=== PATIENT | female | born 1935 | race Caucasian/White ===

== ENCOUNTER 2018-04-25 13:49 | Inpatient (IN) | payer OTHER ==
[~2018-04-25] VITALS: Ht 152.4 cm; Wt 65.3 kg
[~2018-04-25 13:49] MED LIST: ALL DAY ALLERGY10 M3 PO; ARICEPT10 MG PO; DILTIAZEM HCL90 MG PO; DOXYCYCLINE 10100 MG PO; GLUCOSAMINE S1000 M2 PO; KEFLEX500 MG PO; LEVAQUIN 250 M250 MG PO; LIPITOR 20 MG T20 M1 PO; LISINOPRIL10 MG PO; LOPERAMIDE 2 MG2 M1 PO; MUCINEX600 MG PO; NAMENDA 10 MG T10 MG PO; NASONEX17 GM NS; NORVASC5 MG PO; OXYBUTYNIN 5 MG5 M1 GT; PLAVIX 75 MG TA75 M1 PO; PRILOSEC 20 MG20 MG PO; PROTONIX 20 MG20 M1 PO; SEROQUEL 25 MG25 M1 PO; TUMS PO; TYLENOL325 MG PO; XARELTO20 MG PO; ZOLOFT25 MG PO; ZYRTEC10 M2 PO
[2018-04-25 13:55] VITALS: BP 116/41
[2018-04-25 14:00] VITALS: BP 144/57
[2018-04-25] MEDS ORDERED: OCEAN104 ML NASAL (14:01)
[2018-04-25] MEDS ORDERED: ASPIR 8181 MG PO (14:02)
[2018-04-25] MEDS ORDERED: ATROVENT HFA14 GM INH (14:02)
[2018-04-25] MEDS ORDERED: PEPCID20 MG PO (14:03)
[2018-04-25 14:21] LABS: URINE BILIRUBIN NEGATIVE (Negative); URINE BLOOD 1+ (Negative); URINE CLARITY CLOUDY; URINE COLOR YELLOW; URINE GLUCOSE-RANDOM NEGATIVE (Negative); URINE KETONES NEGATIVE (Negative); URINE PROTEIN 1+ (Negative); URINE SPECIFIC GRAVITY >= 1.030 (1.005-1.030); URINE UROBILINOGEN 0.2 E.U./dl (0.2-1.0)
[2018-04-25 14:24] LABS: ABSOLUTE BASOPHILS 0.1 thou/uL (0.0-0.2); ABSOLUTE EOSINOPHILS 0.1 thou/uL (0.0-0.7); ABSOLUTE LYMPHOCYTES 1.7 thou/uL (0.8-5.3); ABSOLUTE MONOCYTES 0.9 thou/uL (0.0-1.2); ABSOLUTE NEUTROPHILS 8.5 thou/uL (1.6-8.1); BASOPHILS 0.6 %; EOSINOPHILS 0.7 %; HEMATOCRIT 33.9 % (37.0-47.0); HEMOGLOBIN 11.1 gm/dL (12.0-15.0); LYMPHOCYTES 15.2 %; MCH 27.1 pg (26.0-34.0); MCHC 32.6 g/dL (28.0-37.0); MCV 83.2 fL (80.0-100.0); MONOCYTES 7.8 %; MPV 8.3 fl. (7.2-11.1); NUCLEATED RBCS 0 /100WBC; PLATELET COUNT* 229 thou/uL (150-400); POLYS 75.7 %; RBC 4.07 mil/uL (4.20-5.00); RDW-CV 15.5 % (10.5-14.5); WBC 11.2 thou/uL (4.0-11.0)
[2018-04-25 14:24] LABS: URINE LEUKOCYTES-REFLEX 2+ (Negative); URINE NITRITE-REFLEX POSITIVE (Negative)
[2018-04-25 14:30] LABS: SQUAMOUS 4-10 Moderate /LPF (0-3); WBC CLUMPS Few (None Seen)
[2018-04-25 14:32] LABS: BACTERIA-REFLEX 1-9 Few /HPF (None Seen); HYALINE CASTS 0-3 Few /LPF (None Seen); MUCUS 0-3 Light strn/LPF (None Seen); URINE RBC 0-2 Rare /HPF (0-2)
[2018-04-25 14:33] LABS: CRYSTALS None Seen /LPF (None Seen)
[2018-04-25 14:36] LABS: APTT 30.3 Seconds (25.0-31.3); INR 1.1; PROTIME 10.8 Seconds (9.20-11.50)
[2018-04-25 14:37] LABS: ANION GAP 7 mmol/L (7-16); BUN 13 mg/dL (7-18); CALCIUM 9.3 mg/dL (8.5-10.1); CHLORIDE 99 mmol/L (98-107); CO2 27 mmol/L (21-32); CREATININE 1.2 mg/dL (0.6-1.3); GLUCOSE 200 mg/dL (70-99); POTASSIUM 4.1 mmol/L (3.5-5.1); SODIUM 133 mmol/L (136-145)
[2018-04-25 14:49] LABS: ALBUMIN 2.6 g/dL (3.4-5.0); ALKALINE PHOSPHATASE 73 U/L (46-116); NT-PRO BRAIN NAT PEPTIDE 345 pg/mL (<300); SGOT 20 U/L (15-37); SGPT 21 U/L (30-65); TOTAL BILIRUBIN 0.4 mg/dL (<0.1-1.0); TOTAL PROTEIN 7.4 g/dL (6.4-8.2); TROPONIN-I LEVEL <0.06 ng/mL (<0.06)
[2018-04-25 15:46] VITALS: BP 143/54
[2018-04-25 16:00] VITALS: BP 144/57
--- NOTE | 2018-04-25 17:06 | NUR ---
PATIENT ADMITTED TO THE UNIT AT 1600 FROM ER. PATIENT AWAKE UPON ARRIVING, BUT NON-VERBAL AND FELL ASLEEP QUICKLY AFTER ARRIVING. PATIENT AWAKE TO STIMULATION, BUT FALLS ASLEEP EASILY. VITALS WNL. DOES NOW HAVE LOW-GRADE FEVER. DTR STATED SHE HAD A HIGH FEVER OF 101.8 AT THE [facility] OVERNIGHT AND THAT'S WHAT PROMPTED HER TO BE BROUGHT HERE. DX WITH PNA AND UTI. DTR STATES PATIENT HAS A HX OF DEMENTIA BUT USUALLY IS ALERT AND DOES TRY TO SPEAK TO NURSING STAFF. HX OF STROKE WITH LEFT SIDED WEAKNESS. PATIENT NON-AMBULATORY, BUT DTR STATES SHE DOES TRANSFER TO A WHEELCHAIR BY PIVOT WITH MAX ASSIST. [facility] RES[facility]. HAS OUTSIDE OF HOSPITAL DNR IN CHART, BUT PATIENT'S DAUGHTER STATED SHE WOULD LIKE HER TO BE A FULL CODE AT THIS TIME. DR BERNSTEIN NOTIFIED WHO ORDERED FULL CODE STATUS. IV IN LAC INFUSING NS PER EMAR. VANC COMPLETED AFTER ARRIVAL TO UNIT, AWAASHLEY RODAS FROM PHARMACY TO INFUSE. PATIENT INCONTNENT BUT DRY UPON ARRIVAL. WILL CONTINUE WITH CURRENT PLAN OF CARE.
[2018-04-25 19:00] VITALS: BP 134/55
[2018-04-25 20:27] LABS: MAGNESIUM 1.8 mg/dL (1.8-2.4); PHOSPHORUS* 2.9 mg/dL (2.5-4.9)
--- NOTE | 2018-04-25 22:30 | NUR ---
ASSESSMENT COMPLETED AT START OF SHIFT. PT WILL ANSWER CLOSED ENDED QUESTIONS BY NODDING HER HEAD. DENIES PAIN. PT HAS HAD 1 LOOSE STOOL THUS FAR THIS EVENING. PT TRACING SR ON MONITOR. IVF AND IV ABT INFUSING ORDERED. VSS AT THIS TIME. BED ALARM ON, Q2 TURNS. CLWR
[2018-04-26 00:08] VITALS: BP 119/47
[2018-04-26 04:56] LABS: HEMOGLOBIN 9.5 gm/dL (12.0-15.0); MCH 27.7 pg (26.0-34.0); MCHC 32.9 g/dL (28.0-37.0); MCV 84.1 fL (80.0-100.0); MPV 8.5 fl. (7.2-11.1); RBC 3.45 mil/uL (4.20-5.00); RDW-CV 15.4 % (10.5-14.5)
[2018-04-26 05:10] LABS: ALBUMIN 2.2 g/dL (3.4-5.0); CALCIUM 8.6 mg/dL (8.5-10.1); CREATININE 0.9 mg/dL (0.6-1.3); MAGNESIUM 1.7 mg/dL (1.8-2.4); POTASSIUM 3.5 mmol/L (3.5-5.1); TOTAL BILIRUBIN 0.3 mg/dL (<0.1-1.0); TOTAL PROTEIN 6.6 g/dL (6.4-8.2)
[2018-04-26 05:22] VITALS: BP 132/53
--- NOTE | 2018-04-26 05:25 | NUR ---
PT HAS SLEPT WELL T/O THIS SHIFT. CONTINUES TRACING SR WITH 1ST DEGREE BLOCK ON MONITOR. NO NEW CONCERNS AT THIS TIME. CLWR.
--- NOTE | 2018-04-26 10:22 | EKG ---
[place] [address] ELECTROCARDIOGRAM REPORT Name: ROCAELARYDOMO Room: [address] ADM IN M.R.#: [id number] Admission: 04/25/18 Attend Phys: Eitan Dinh, Discharge: Date of : 37 Report #: [id number] THIS REPORT FOR: //name// [facility] ED Test Date: 2018-04-25 Test Time: 13:54:57 Pat Name: DOMO PIERCE Department: Room: [facility] Gender: F Floor Attendant: Kenzie LAKE : 1935 Requested By: Brown Weiss Order Number: [id number] MD: Bridger Sanchez Measurements Intervals [place] Rate: 64 P: 40 SC: 204 QRS: -42 QRSD: 95 T: 16 QT: 534 QTc: 551 Interpretive Statements Sinus rhythm Left anterior fascicular block Left ventricular hypertrophy Anterior Q waves, possibly due to LVH Diffuse ST elevation, consider early repolarization Prolonged QT interval Compared to ECG 04/17/2017 15:23:29 Q waves now present Myocardial infarct finding now present Prolonged QT interval now present Atrial fibrillation no longer present Early repolarization no longer present ST (T wave) deviation still present Electronically Signed On 04-26-2018 10:22:35 SLAB POLISHER by Bridger Sanchez [email or web address] <ELECTRONICALLY SIGNED> By: Bridger Sanchez MD, FACC 04/26/18 1022 1354 [id number] Bridger Sanchez MD, FAC /EPI
[2018-04-26 10:30] VITALS: BP 143/59
--- NOTE | 2018-04-26 11:00 | NUR ---
REC'D REPORT FROM NOC RN, ASSUMED PT CARE 0730. ORIENTED TO PERSON, SITUATION. PT SLOW TO RESPOND, DIFFICULT TO UNDERSTAND DURING INTITIATION OF SPEECH. PLEASANT, APPROPRIATE COMMUNICATION STYLE AFTER INITIAL HESITATION. HEAD BANQUET WAITRESS IN PLACE, SR BBB. O2 SATS >92% ON RA. ASSESSMENT COMPLETE, DOCUMENTED. MEDS PER AUG. PT TOLERATES CRUSHED MED IN PUDDING. DAUGHTER VISITING IN ROOM. EDUCATION PROVIDED R/T CAREGIVER STRESS. DTR EXPRESSED RELIEF WITH THERAPEUTIC COMMUNICATION.
[2018-04-26 16:14] VITALS: BP 141/50
[2018-04-26 19:15] VITALS: BP 127/47
--- NOTE | 2018-04-26 22:40 | NUR ---
INITIAL ASSESSMENT COMPLETED AT START OF SHIFT. PT HAS A CONGESTED COUGH AND APPEARS TO BE SWALLOWING PHLEGM. O2 SATS ADEQUATE ON ROOM AIR. PT FEBRILE AT 100.2 AT TIME OF ASSESSMENT, PRN TYLENOL GIVEN WITH GOOD RESULTS. TEMPERATURE RETURNED TO NORMAL. IVF/IV ABT INFUSING ORDERED. PT INCONTINENT OF BLADDER AT THAT TIME. CLWR.
[2018-04-27] VITALS (7 sets, daily range): BP systolic 103–154; BP diastolic 50–81
--- NOTE | 2018-04-27 05:49 | NUR ---
PT HAS SLEPT T/O THE NIGHT. Q2 TURNS. 3 LOOSE STOOLS NOTED. RT PLACED PT ON 2L O2 VIA NC O2 SAT DROPPED TO 84% ON ROOM AIR, O2 SAT 94% ON 2LPM. PT DOES NOT APPEAR TO BE SOA OR IN ANY DISTRESS AT THIS TIME. CLWR.
[2018-04-27 05:50] LABS: HEMATOCRIT 28.6 % (37.0-47.0); HEMOGLOBIN 9.6 gm/dL (12.0-15.0); MCH 27.7 pg (26.0-34.0); MCHC 33.5 g/dL (28.0-37.0); MCV 82.7 fL (80.0-100.0); MPV 8.4 fl. (7.2-11.1); RBC 3.45 mil/uL (4.20-5.00); WBC 6.8 thou/uL (4.0-11.0)
[2018-04-27 05:58] LABS: CALCIUM 8.7 mg/dL (8.5-10.1); CREATININE 0.8 mg/dL (0.6-1.3); MAGNESIUM 1.6 mg/dL (1.8-2.4); POTASSIUM 3.4 mmol/L (3.5-5.1)
--- NOTE | 2018-04-27 15:48 | NUR ---
MET WITH PT/DTR TO DISCUSS HOME SITUATION/DC PLANNING. PT LIVES IN THE MEMORY CARE UNIT AT [facility]. IS W/C BOUND. DTR/ED STATES PLAN IS FOR HER TO RETURN THERE AT DC. ED IS DPOA. CALLED AND FAXED CLINICAL UPDATE TO CALLIE/CHANEL, THEY WILL ACCEPT BACK AT DC
--- NOTE | 2018-04-27 18:19 | NUR ---
PT WITHOUT C/O TODAY. FAMILY AT BEDSIDE. PT ANSWERS QUESTIONS WITH SIMPLE YES OR NO ANSWERS. PT NEEDS TIME TO PROCESS QUESTION BEFORE ANSWERING. PT ASSISTED WITH MEALS, HAS A SMALL APPETITE. RESPIRATIONS EVEN AND UNLABORED AT REST, CONGESTED COUGH, NO SPUTUM SEEN.
[2018-04-28] VITALS: BP 155/56
--- NOTE | 2018-04-28 02:30 | NUR ---
PT ALERT THIS SHIFT, ABLE TO ANSWER CLOSED ENDED QUESTIONS APPROPRIATELY. PT INCONTINENT OF BOWEL AND BLADDER. TRACING SR WITH 1ST DEGREE BLOCK ON THE MONITOR. PT DOES NOT APPEAR TO BE IN ANY DISTRESS. PT HAS BEEN REMOVING NC FREQUENTLY, O2 SATS AT 91% ON ROOM AIR. CONGESTED COUGH NOTED. IVF/IV ABT INFUSING ORDERED. CLWR, PT TURNED Q2 HRS FOR SKIN BREAKDOWN PREVENTION.
[2018-04-28 04:30] VITALS: BP 146/54
--- NOTE | 2018-04-28 06:07 | NUR ---
PT HAS SLEPT WELL T/O THIS SHIFT. HAD LOW GRADE FEVER AT START OF SHIFT, TYLENOL GIVEN, TEMP RETURNED TO NORMAL. PT HAS BEEN ON ROOM AIR T/O THIS SHIFT. CURRENTLY ON 2LPM WHILE SLEEPING
[2018-04-28 08:32] VITALS: BP 159/51
[2018-04-28 10:44] LABS: HEMATOCRIT 27.7 % (37.0-47.0); HEMOGLOBIN 9.3 gm/dL (12.0-15.0); MCH 27.7 pg (26.0-34.0); MCHC 33.5 g/dL (28.0-37.0); MCV 82.7 fL (80.0-100.0); MPV 8.5 fl. (7.2-11.1); RBC 3.35 mil/uL (4.20-5.00); RDW-CV 14.9 % (10.5-14.5); WBC 6.9 thou/uL (4.0-11.0)
[2018-04-28 12:00] VITALS: BP 142/79
[2018-04-28 15:48] VITALS: BP 115/62
--- NOTE | 2018-04-28 16:31 | EKG ---
[place] [address] ELECTROCARDIOGRAM REPORT Name: ROCAELARYDOMO Room: [address] ADM IN M.R.#: [id number] Admission: 04/25/18 Attend Phys: Eitan Dinh, Discharge: Date of : 37 Report #: [id number] THIS REPORT FOR: //name// [facility] Test Date: 2018-04-28 Test Time: 12:19:13 Pat Name: DOMO PIERCE Department: Room: [address] Gender: F Chief Scientist: JAQUELINE MCFARLAND : 1935 Requested By: Eitan Dinh Order Number: [id number] MD: Jeff Mijares Measurements Intervals [place] Rate: 124 P: [place]: QRS: -48 QRSD: 92 T: 71 QT: 358 QTc: 515 Interpretive Statements Atrial fibrillation Left anterior fascicular block LVH with secondary repolarization abnormality Anterior Q waves, possibly due to LVH Prolonged QT interval Compared to ECG 04/25/2018 13:54:57 2:1 AV block now present Sinus rhythm no longer present ST (T wave) deviation no longer present Electronically Signed On 04-28-2018 16:30:54 HAIR SPINNING MACHINE OPERATOR by Jeff Mijares [email or web address] <ELECTRONICALLY SIGNED> By: Jeff Mijares MD, FACC 04/28/18 1630 1219 1219 Jeff Mijares MD, FACC /EPI
--- NOTE | 2018-04-28 17:52 | NUR ---
PT PROGRESSING TOWARD GOALS. PT CURRENTLY SLEEPING. PT HAS BEEN VERY TIRED DURING THE DAY. PT HAS A HISTORY OF A. FIB. PT CURRENLTY IN A.FIB. CARDIOLOGY CONSULTED
[2018-04-28 20:00] VITALS: BP 157/81
[2018-04-29] VITALS: BP 148/52
[2018-04-29 04:00] VITALS: BP 112/81
--- NOTE | 2018-04-29 05:23 | NUR ---
ASSUMED RT CARE @ 1930. PT DAUGHTER AT BEDSIDE UNITL PT FELL ASLEEP. PT OREINTED TO SELF. AWAKE. ABLE TO TAKE MEDS CRUSHED WITH PUDDING. NOTIFIED DR IRAHETA UNABLE TO SWALLOW CARDIZEM DELAYED RELEASE. OREDER CHANGED TO CARDIZEM IR. PT WAS ABLE TO SWALLOW MED CRUSHED IN PUDDING. PT HAS HAD NON PRODUCTIVE COUGH THROUGH THE NIGHT. PT WAS AFLUTTER ON THE MONITOR AND IS CURRENTLY SR WITH 1RST DEGREE BLOCK AFTER 2ND DOSE OF CRUSHED CARDIZEM IR. PT HAD DENIED PAIN THIS SHIFT. MULTIPLE LOOSE STOOLS NOTED WITH Q2HR TURNS. BARRIER CREAM APPLIED WITH PERICARE. PT WAS ABLE TO SLEEP THROUGH OUT THE NIGHT UNLESS TREATMENT BEING GIVEN. CALL LIGHT AT BEDSIDE. BED ALARM ON. OFFERED FLUIDS WHEN PT WAS AWAKE. WILL CONTINUE TO MONITTOR.
--- NOTE | 2018-04-29 06:49 | CON ---
[address] [address] CONSULTATION Name: DOMO PIERCE Room: [address] IN M.R.#: [id number] Admission: 04/25/18 Attend Phys: Eitan Dinh, Discharge: Date of : 37 Report #: [id number] THIS REPORT FOR: //name// CC: Marc Dinh DATE OF SERVICE: 04/28/2018 INPATIENT CONSULTATION REQUESTING PHYSICIAN: Dr. Dinh. CHIEF COMPLAINT: Atrial fibrillation. HISTORY OF PRESENT ILLNESS: The patient is an 83-year-old admitted 3 days ago for pneumonia and respiratory insufficiency, went into atrial fibrillation with heart rates in the 130s. She has a history of dementia and has no complaints of palpitations, heart racing or skipping. She is hemodynamically stable. She was placed on oral Cardizem and heart rates were in the low 100s. She has been diagnosed with atrial fibrillation approximately 1 year ago. She has a history of normal LV function based on an echocardiogram performed this year. She had been on Xarelto, but developed a severe nosebleed that actually required blood transfusions while hospitalized at [facility] and they discontinued her anticoagulation at that point. She has no documented history of underlying coronary artery disease and there is no record of chest pain or pressure. 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 PAST MEDICAL HISTORY: Hypertension, remote CVA with left-sided weakness in 2015, details of that hospitalization are not available, hyperlipidemia, severe bleeding and respiratory insufficiency. ALLERGIES: PREDNISONE AND SULFA. SOCIAL HISTORY: She is a jail patient. There is no tobacco or ethanol history. REVIEW OF SYSTEMS: Not obtainable. From the chart record: CONSTITUTIONAL: There are no fevers or chills. RESPIRATORY: Positive shortness of breath, positive cough. CARDIOVASCULAR: Negative for chest pain, negative [place] [address] CONSULTATION Name: DOMO PIERCE Room: [address] IN [facility].#: [id number] Admission: 04/25/18 Attend Phys: Eitan Dinh, Discharge: Date of : 37 Report #: [id number] NEUROLOGIC: No headaches or blurry vision. GENITOURINARY: No dysuria or hematuria. GASTROINTESTINAL: No rectal bleeding. PHYSICAL EXAMINATION: VITAL SIGNS: Blood pressure 115/62, respirations 20, temperature is 37.2. GENERAL: Elderly female. She is in no distress. HEENT: Eyes, EOMs intact. There is no evidence of trauma. NECK: No JVD. irregular, tachycardic. I cannot hear a murmur. LUNGS: Diminished breath sounds. ABDOMEN: Nontender. EXTREMITIES: No peripheral edema. LABORATORY DATA: ECG demonstrates atrial fibrillation with nonspecific ST segment abnormalities. ECG on presentation shows a sinus rhythm with LVH. Hemoglobin is 9.3. Sodium 137, potassium 3.4, chloride 105, BUN is 7, creatinine is 0.8. Chest x-ray shows lateral right lower lobe opacity with atelectasis and pneumonia and vascular congestion. IMPRESSION: 1. Atrial fibrillation. She has done well on a rate control strategy this inpatient. She has a history of normal left ventricular function. 2. History of cerebrovascular accident. While her CHADS-VASc score is elevated, 4. She has failed anticoagulation. I do not think she is a good candidate for a left atrial appendage closure. She has a history of transfusion-requiring nose bleed. I would continue with baby aspirin. 3. Dementia. 4. Hypertension. 5. Community-acquired pneumonia. <ELECTRONICALLY SIGNED> By: Bridger Sanchez MD, FACC 04/29/18 0649 1651 [id number] Mijares MD, FACC /nt
[2018-04-29 08:51] VITALS: BP 147/50
--- NOTE | 2018-04-29 11:07 | NUR ---
CONTINUE TO FOLLOW, DISCUSSED WITH DR VASQUEZ. ANTICIPATE DC TOMORROW. CALLED TO UPDATE DTR/ED. SHE IS AWARE AND PLANS TO VISIT PT TODAY
--- NOTE | 2018-04-29 11:38 | NUR ---
ASSUMED CARE OF PATIENT THIS AM AT 0730. PATIENT IS RESTING WITH HER EYES CLOSED MOST TO THE AM. SHE OPENS HER EYES ON VOICE COMMAND. TELE SHOWS SR TO SB WITH 1DAVB. PATIENT IS INCONTINENT OF DIARRHEA STOOL X 1. HER PERIAREA IS EXCORIATED. PATIENT REPOSITIONED Q [address] IN TO ROUND AND PLANS FOR DISCHARGE IN THE AM. PATIENT IS TAKING HER MEALS WELL WITH ASSIST. DAUGHTER IN TO SEE PATIENT THIS AFTERNOON. BS ECHO PERFORMED. BARRIER CREAM APPLIED Q 2 HR. IV FLUIDS INFUSING ORDERED. WILL CONTINUE TO MONITOR PATIENT COMFORT. NO FALLS OR INJURY. BED ALARM REMAINS ON.
[2018-04-29 12:00] VITALS: BP 133/48
--- NOTE | 2018-04-29 15:19 | 2DMMODE ---
[place] [address] 2 D/M-MODE ECHOCARDIOGRAM Name: KARIDOMO VEAGS Room: [address] IN [facility]#: [id number] Admission: 04/25/18 Attend Phys: Eitan Obrien Discharge: Date of : 37 Date of Service: 04/29/18 1519 Report #: [id number] THIS REPORT FOR: //name// APPROVED REPORT Study performed: 04/29/2018 11:28:56 EXAM: Comprehensive 2D, Doppler, and color-flow Echocardiogram Patient Location: In-Patient Room #: 230 Status: routine BSA: 1.66 HR: 61 bpm BP: 147/50 mmHg Rhythm: NSR Other Information Study Quality: Good Indications Atrial Fibrillation 2D Dimensions IVSd: 12.00 (7-11mm) LVOT Diam: 16.73 (18-24mm) LVDd: 36.44 mm PWd: 9.92 (7-11mm) Ascending Ao: 33.06 (22-36mm) LVDs: 17.49 (25-40mm) Aortic Root: 30.06 mm Volumes Left Atrial Volume (Systole) LA ESV Index: 32.10 mL/m2 Aortic Valve AoV Peak Kaiser.: 1.64 m/s AO Peak Gr.: 10.81 mmHg LVOT Max P.41 mmHg AO Mean Gr.: 6.45 mmHg LVOT Mean P.29 mmHg LVOT Max V: 1.61 m/s AO V2 VTI: 39.44 cm LVOT Mean V: 1.06 m/s MICHELLE (VTI): 2.08 cm2 LVOT V1 VTI: 37.25 cm AI Petroleum: 1.59 m/s2 AI PHT: 541.82 ms Mitral Valve E/A Ratio: 1.73 [place] [address] 2 D/M-MODE ECHOCARDIOGRAM Name: DOMO PIERCE Room: [address] IN .R.#: [id number] Admission: 04/25/18 Attend Phys: Eitan Obrien Discharge: Date of : 37 Date of Service: 04/29/18 1519 Report #: [id number] MV Decel. Time: 157.47 ms MV E Max Kaiser.: 1.30 m/s MV PHT: 45.67 ms MVA (PHT): 4.82 cm2 TDI E/Lateral E': 11.82 E/Medial E': 16.25 Medial E' Kaiser.: 0.08 m/s Lateral E' Kaiser.: 0.11 m/s Pulmonary Valve PV Peak Kaiser.: 1.00 m/s PV Peak Gr.: 4.00 mmHg Tricuspid Valve RAP Estimate: 10.00 mmHg TR Peak Gr.: 52.55 mmHg RVSP: 62.00 mmHg PA Pressure: 62.00 mmHg Left Ventricle The left ventricle is normal size. There is normal LV segmental wall motion. There is normal left ventricular wall thickness. Left ventricular systolic function is normal. The left ventricular ejection fraction is within the normal range. LVEF is 60-65%. The left ventricular diastolic function is normal. Right Ventricle The right ventricle is normal size. The right ventricular systolic function is normal. Atria Left atrium is mildly dilated. The right atrium size is normal. Aortic Valve The aortic valve is normal in structure. Mild aortic regurgitation. There is no aortic valvular stenosis. Mitral Valve The mitral valve is normal in structure. Mild mitral regurgitation. No evidence of mitral valve stenosis. Tricuspid Valve The tricuspid valve is normal in structure. Mild tricuspid regurgitation. estimated pa pressure 65 [place] [address] 2 D/M-MODE ECHOCARDIOGRAM Name: DOMO PIERCE Room: [address] IN [facility]#: [id number] Admission: 04/25/18 Attend Phys: Eitan Obrien Discharge: Date of : 37 Date of Service: 04/29/18 1519 Report #: [id number] The pulmonary valve is normal in structure. Trace pulmonic regurgitation. Great Vessels The aortic root is normal in size. IVC is dilated. Pericardium There is no pericardial effusion. <Conclusion> LVEF is 60-65%. Left atrium is mildly dilated. Mild aortic regurgitation. Mild mitral regurgitation. Mild tricuspid regurgitation. estimated pa pressure 65 mm Hg <ELECTRONICALLY SIGNED> By: Jong Marie MD, FACC 04/29/18 1519 18 18 Jong Marie MD, FACC /INF
[2018-04-29 15:38] VITALS: BP 134/50
--- NOTE | 2018-04-29 17:21 | NUR ---
WOUND NURSE: PATIENT SEEN FOR WOUND ASSESSMENT PERTAINING TO HEALING SKIN LESIONS TO BUTTOCKS. NO OPEN WOUNDS AT TIME OF THIS ASSESSMENT. CONTINUES TO HAVE FAINT INCONTINENCE RELATED REDNESS, BUT THIS IS NEARLY RESOLVED USING MOISTURE BARRIER CREAM AND LORENZO CATHETER IN PLACE AND REPOSITIONING SCHEDULE. WILL CONTINUE THIS PLAN OF CARE AT THIS TIME.
[2018-04-29 20:00] VITALS: BP 150/50
[2018-04-30] VITALS: BP 142/49
[2018-04-30 04:00] VITALS: BP 163/61
[2018-04-30 05:05] LABS: HEMATOCRIT 27.6 % (37.0-47.0); HEMOGLOBIN 9.4 gm/dL (12.0-15.0); MCH 27.8 pg (26.0-34.0); MCV 81.7 fL (80.0-100.0); MPV 7.5 fl. (7.2-11.1); RBC 3.38 mil/uL (4.20-5.00); WBC 6.4 thou/uL (4.0-11.0)
--- NOTE | 2018-04-30 05:34 | NUR ---
ASSUMED PT CARE @ 1930. PT MORE ALERT AND ORIENTED THIS SHIFT THAN OBSERVED BY THIS RN PRIOR CALIBRATION ENGINEER. ABLE TO ANSWER IN COMPLETE SENTENCES (MORE THAN ONE WORD ANSWERS ON PRIOR CALIBRATION ENGINEER). OFFERED PT FLUIDS WITH EVERY TURN AND MED PASS. DRINKS 60-100CC EACH TIME. CONGESTED COUGH NOTED W TURNS. Q 2HR TURNS AND PERICARE GIVEN. PT STILL HAS SMALL AMOUNTS OF DARK BROWN THICK LOOSE STOOL. IV INTACT AND FLUIDS. PT WAS SR WITH 1RST DEGREE BLOCK. PT WAS IN AFLUTTER @ 0400. PRN CARDIZEM GIVEN. PT IS CURRRENTLY AFIB HR 100'S. CALL LIGHT IN PLACE. WILL CONTINUE TO MONITOR FOR SAFETY.
[2018-04-30 08:00] VITALS: BP 135/72
--- NOTE | 2018-04-30 11:08 | NUR ---
ORDERS NOTED FOR DC BACK TO [facility] [place]. CALLED AND FAXED DC ORDERS TO JENNIFER. SHE SET UP W/C VAN FOR 2PM. CHART COPIED. PT AND DTR/ED UPDATED WITH DC INFO. RN HAS NUMBER TO CALL REPORT
[2018-04-30 12:28] VITALS: BP 128/75
[2018-04-30 13:25] VITALS: BP 128/75
[2018-04-30] MEDS ORDERED: CIPRO500 MG PO (13:50)
[2018-04-30] MEDS ORDERED: PRENATA CHEWAB1 EACH PO (14:02)
--- NOTE | 2018-04-30 14:41 | NUR ---
PT DISCHARGED BACK TO [facility] AT 1400. PT'S DAUGHTER AT THE BEDSIDE. NO QUESTIONS AT THIS TIME. REPORT GIVEN TO NURSE AT [facility].
== END 2018-04-30 14:00 | DRG 871 ==
LOC: M.ERS 13:49 → M.2W 15:21 → M.TBA-ER 15:21 → M.2W 15:55
PROVIDERS: Emergency Medicine Emergency Medical Services; Internal Medicine; ADMIT Family Medicine
DX: A41.9 Sepsis, unspecified organism (principal); J15.212 Pneumonia due to Methicillin resistant Staphylococcus aureus; N39.0 Urinary tract infection, site not specified; G93.40 Encephalopathy, unspecified; I69.354 Hemiplegia and hemiparesis following cerebral infarction affecting left non-dominant side; I10 Essential (primary) hypertension; F03.90 Unspecified dementia, unspecified severity, without behavioral disturbance, psychotic disturbance, mood disturbance, and anxiety; K21.9 Gastro-esophageal reflux disease without esophagitis; E78.5 Hyperlipidemia, unspecified; I48.91 Unspecified atrial fibrillation; K62.89 Other specified diseases of anus and rectum; B96.20 Unspecified Escherichia coli [E. coli] as the cause of diseases classified elsewhere; Z88.2 Allergy status to sulfonamides; Z88.8 Allergy status to other drugs, medicaments and biological substances; Z83.49 Family history of other endocrine, nutritional and metabolic diseases; Z90.710 Acquired absence of both cervix and uterus; Z79.82 Long term (current) use of aspirin; Z79.899 Other long term (current) drug therapy

== ENCOUNTER 2018-08-12 05:04 | Inpatient (IN) | payer OTHER ==
[~2018-08-12] VITALS: Ht 162.6 cm; Wt 66.4 kg
[2018-08-12] VITALS (7 sets, daily range): BP systolic 107–154; BP diastolic 41–88
[~2018-08-12 05:04] MED LIST changes: +ASPIR 8181 MG PO; +ATROVENT HFA14 GM INH; +CIPRO500 MG PO; +OCEAN104 ML NASAL; +PEPCID20 MG PO; +PRENATA CHEWAB1 EACH PO
[2018-08-12 05:43] LABS: URINE BILIRUBIN NEGATIVE (Negative); URINE BLOOD TRACE (Negative); URINE CLARITY CLEAR; URINE COLOR YELLOW; URINE GLUCOSE-RANDOM NEGATIVE (Negative); URINE KETONES NEGATIVE (Negative); URINE LEUKOCYTES-REFLEX NEGATIVE (Negative); URINE NITRITE-REFLEX POSITIVE (Negative); URINE PROTEIN 1+ (Negative); URINE SPECIFIC GRAVITY >= 1.030 (1.005-1.030); URINE UROBILINOGEN 0.2 E.U./dl (0.2-1.0)
[2018-08-12 05:46] LABS: ABSOLUTE BASOPHILS 0.1 thou/uL (0.0-0.2); ABSOLUTE LYMPHOCYTES 1.4 thou/uL (0.8-5.3); ABSOLUTE MONOCYTES 0.5 thou/uL (0.0-1.2); ABSOLUTE NEUTROPHILS 3.5 thou/uL (1.6-8.1); BASOPHILS 1.1 %; EOSINOPHILS 0.4 %; HEMATOCRIT 34.2 % (37.0-47.0); HEMOGLOBIN 11.6 gm/dL (12.0-15.0); LYMPHOCYTES 25.4 %; MCH 28.2 pg (26.0-34.0); MCHC 33.8 g/dL (28.0-37.0); MCV 83.4 fL (80.0-100.0); MONOCYTES 8.6 %; NUCLEATED RBCS 0 /100WBC; PLATELET COUNT* 194 thou/uL (150-400); POLYS 64.5 %; RDW-CV 15.5 % (10.5-14.5); WBC 5.4 thou/uL (4.0-11.0)
[2018-08-12 05:54] LABS: PROTIME 10.3 Seconds (9.20-11.50)
[2018-08-12 05:58] LABS: BACTERIA-REFLEX >30 Many /HPF (None Seen); CASTS None Seen /LPF (None Seen); CRYSTALS None Seen /LPF (None Seen); MUCUS 0-3 Light strn/LPF (None Seen); SQUAMOUS 0-3 Few /LPF (0-3); URINE RBC 0-2 Rare /HPF (0-2)
[2018-08-12 06:02] LABS: ANION GAP 8 mmol/L (7-16); BUN 20 mg/dL (7-18); CALCIUM 9.7 mg/dL (8.5-10.1); CHLORIDE 102 mmol/L (98-107); CO2 27 mmol/L (21-32); CREATININE 1.1 mg/dL (0.6-1.3); GLUCOSE 147 mg/dL (70-99); POTASSIUM 4.3 mmol/L (3.5-5.1); SODIUM 137 mmol/L (136-145); TROPONIN-I LEVEL <0.06 ng/mL (<0.06)
[2018-08-12 06:04] LABS: ALKALINE PHOSPHATASE 64 U/L (46-116); MAGNESIUM 1.8 mg/dL (1.8-2.4); NT-PRO BRAIN NAT PEPTIDE 280 pg/mL (<300); SGOT 37 U/L (15-37); SGPT 37 U/L (30-65); TOTAL BILIRUBIN 0.3 mg/dL (<0.1-1.0); TOTAL PROTEIN 7.7 g/dL (6.4-8.2)
[2018-08-12 06:32] LABS: BE 1.7 mmol/L (-2 to +3); PCO2 36.9 mmHg (35.0-45.0); PO2 77.5 mmHg (75.0-100.0); pH 7.455 (7.340-7.450)
--- NOTE | 2018-08-12 11:38 | EKG ---
[place] [address] ELECTROCARDIOGRAM REPORT Name: DOMO PIERCE Room: [place] [address] ADM IN .R.#: [id number] Admission: 08/12/18 Attend Phys: Rey Domínguez MD Discharge: Date of : 37 Report #: [id number] THIS REPORT FOR: //name// [facility] Test Date: 2018-08-12 Test Time: 05:42:24 Pat Name: DOMO PIERCE Department: Room: [facility] Gender: F Mds Nurse: : 1935 Requested By: Lala Santiago Order Number: [id number] MD: Jong Marie Measurements Intervals [place] Rate: 86 P: 74 ME: 175 QRS: -41 QRSD: 94 T: 55 QT: 402 QTc: 481 Interpretive Statements Sinus rhythm Left anterior fascicular block Left ventricular hypertrophy Anterior Q waves, possibly due to LVH Compared to ECG 04/28/2018 12:19:13 Atrial fibrillation no longer present Prolonged QT interval no longer present Electronically Signed On 08-12-2018 11:38:23 GIS MANAGER by Jong Marie [email or web address] <ELECTRONICALLY SIGNED> By: Jong Marie MD, [facility] 08/12/18 1138 0542 0542 Jong Marie MD, [facility] /EPI
--- NOTE | 2018-08-12 17:12 | NUR ---
PATIENT ADMITTED TO ROOM 304 FROM ER. PATIENT HAS BEEN SLEEPING MOST OF SHIFT BUT DOES AWAKEN TO NAME. PATIENTS DAUGHTER AT BEDSIDE DURING ADMISSION, VERY SUPPORTIVE. INCONTINENT OF URINE MULTIPLE TIMES THIS SHIFT. IVF INFUSING. [address], CONGESTED COUGH NOTED. TURN Q2. FALL RISK PROTOCOL. PATIENT IS A FEEDER BUT DID REFUSE LUNCH. PATIENT TOOK PILLS CRUSHED IN APPLESAUCE. DROPLET PRECAUTIONS IN PLACE. ORIENTED TO CALL LIGHT. CALL LIGHT WITHIN REACH, WILL CONTINUE TO MONITOR.
[2018-08-13 04:41] LABS: ABSOLUTE EOSINOPHILS 0.1 thou/uL (0.0-0.7); ABSOLUTE LYMPHOCYTES 1.5 thou/uL (0.8-5.3); ABSOLUTE MONOCYTES 0.4 thou/uL (0.0-1.2); ABSOLUTE NEUTROPHILS 1.9 thou/uL (1.6-8.1); BASOPHILS 0.3 %; EOSINOPHILS 2.6 %; HEMOGLOBIN 10.2 gm/dL (12.0-15.0); LYMPHOCYTES 37.1 %; MCH 28.6 pg (26.0-34.0); MCHC 34.1 g/dL (28.0-37.0); MCV 83.7 fL (80.0-100.0); MONOCYTES 11.3 %; MPV 8.4 fl. (7.2-11.1); NUCLEATED RBCS 0 /100WBC; PLATELET COUNT* 149 thou/uL (150-400); POLYS 48.7 %; POTASSIUM 4.3 mmol/L (3.5-5.1); RBC 3.58 mil/uL (4.20-5.00); RDW-CV 15.5 % (10.5-14.5); WBC 3.9 thou/uL (4.0-11.0)
--- NOTE | 2018-08-13 06:47 | NUR ---
PATIENT SLEPT MOST OF THE NIGHT. PATIENT REFUSED TO TAKE HER PILLS THIS SHIFT. PATIENT HAD A LOW GRADE TEMP OF A 100.0 LAST NIGHT BUT IS 98.5 THIS MORNING. IV FLUIDS CONTINUE TO INFUSE AT 50 ML/HR. PATIENT HAS BEEN TURNED AND CHANGED ABOUT EVERY TWO HOURS. PATIENT REMAINS ON DROPLET PRECAUTIONS FOR INFLUENZA. WILL CONTINUE TO MONITOR.
[2018-08-13 09:24] VITALS: BP 145/49
--- NOTE | 2018-08-13 13:45 | NUR ---
TIN ROOFER SPOKE TO THE PATIENT'S DTR TO DISCUSS HER HOME SITUATION, DISCHARGE PLANNING NEEDS, AND TO INFORM OF THE ROLE OF CM. PATIENT'S DTR INFORMS THAT THE PATIENT IS A MEMORY CARE RESIDENT AT [facility], AND THE PLAN IS FOR THE PATIENT TO RETURN THERE AT D/. D/C SUMMER LAW ASSOCIATE SPOKE TO BEKAH WITH [facility], AND SHE CONFIRMS THAT THE PATIENT IS A MEMORY CARE RESIDENT AND THE FACILITY IS ABLE TO ACCEPT THE PATIENT AT D/C. CM WILL REMAIN AVAILABLE TO ASSIST AND FOLLOW NEEDED.
[2018-08-13 16:59] VITALS: BP 120/36
--- NOTE | 2018-08-13 17:31 | NUR ---
PATIENT HAS BEEN ALERT TODAY VERY PLEASANT. DAUGHTER HAS BEEN AT BEDSIDE MOST OF THE DAY. VITAL SIGNS STABLE ON 3 LITERS OF OXYGEN. HAS TAKEN MEDICATIONS FINE IN PUDDING. NO COMPLAINTS OF PAIN TODAY. CALL LIGHT IS IN REACH, WILL CONTINUE TO MONITOR,
[2018-08-14] VITALS: BP 115/47
[2018-08-14 04:20] LABS: ABSOLUTE EOSINOPHILS 0.1 thou/uL (0.0-0.7); ABSOLUTE LYMPHOCYTES 1.4 thou/uL (0.8-5.3); ABSOLUTE MONOCYTES 0.3 thou/uL (0.0-1.2); ABSOLUTE NEUTROPHILS 2.5 thou/uL (1.6-8.1); BASOPHILS 0.4 %; EOSINOPHILS 3.2 %; HEMATOCRIT 29.8 % (37.0-47.0); LYMPHOCYTES 31.5 %; MCH 28.1 pg (26.0-34.0); MCHC 33.7 g/dL (28.0-37.0); MCV 83.6 fL (80.0-100.0); MONOCYTES 7.7 %; MPV 8.3 fl. (7.2-11.1); NUCLEATED RBCS 0 /100WBC; PLATELET COUNT* 151 thou/uL (150-400); POLYS 57.2 %; RBC 3.57 mil/uL (4.20-5.00); RDW-CV 14.9 % (10.5-14.5); WBC 4.3 thou/uL (4.0-11.0)
[2018-08-14 04:23] LABS: CALCIUM 8.7 mg/dL (8.5-10.1); CREATININE 0.9 mg/dL (0.6-1.3); POTASSIUM 3.9 mmol/L (3.5-5.1)
--- NOTE | 2018-08-14 05:24 | NUR ---
PATIENT SLEPT MOST OF THE NIGHT. IV IS NOW SALINE LOCKED. PATIENT WAS 88-89 ROOM AIR WAS PLACED BACK ON 1L OF OXYGEN PER NASAL CANNULA. PATIENT WAS TURNED AND CHANGED ABOUT EVERY TWO HOURS. PATIENT REMAINS ON DROPLET FOR INFLUENZA. WILL CONTINUE TO [facility].
[2018-08-14 10:22] VITALS: BP 141/50
[2018-08-14 15:00] VITALS: BP 146/57
--- NOTE | 2018-08-14 16:10 | NUR ---
BIOLOGY TEACHER SPOKE TO THE PATIENT'S DTR TO DISCUSS ANY QUESTIONS OR CONCERNS THAT SHE MAY HAVE. PATIENT'S DTR INFORMS THAT HER ONLY CONCERN IS THAT HER MOTHER DOESN'T D/C BACK TO [facility] BEFORE SHE IS WELL. PLAN REMAINS FOR THE PATIENT TO RETURN TO [facility] AT D/C. CM WILL REMAIN AVIALABLE TO ASSIST AND FOLLOW NEEDED.
--- NOTE | 2018-08-14 17:43 | NUR ---
PATIENT IS ALERT AND TODAY AND VERY PLEASANT. DAUGHTER HAS BEEN AT BEDSIDE MOST OF THE DAY. VITAL SIGNS HAVE BEEN STABLE ON 2 LITERS OF OXYGEN THROUGH NASAL CANNULA. PATIENT TAKES PILLS WELL WITH PUDDING. NO COMPLAINTS OF PAIN TODAY. UP IN CHAIR MOST OF THE DAY AND TOLERATED WELL. CALL LIHGT IS IN REACH, BED ALARM AND CHAIR ALARM IS IN PLACE, WILL CONTINUE TO MONITOR.
[2018-08-14 19:30] VITALS: BP 134/52
--- NOTE | 2018-08-15 04:07 | NUR ---
RESTED WELL THROUGHOUT HOURLY ROUNDS, VERY PLEASANT, INCONINTENT OF URINE, TURNED PO MEDICATION TAKEN EASLY WITH PUDDING., TURNED EVERY TWO HOURS PER PROTOCOL. WILL CONINTUE WITH CURRRENT PLAN OF CARE.
[2018-08-15 07:50] VITALS: BP 146/59
--- NOTE | 2018-08-15 16:27 | NUR ---
PATIENT ALERT AND ORIENTED TO SELF. PATIENT WAS FOUND ON RA IN THE AM WITH O2 SAT AT 90%. 1L NC APPLIED AND O2 SAT WENT UP TO 92%. PATIENT NOW ON RA PER RT, O2 SAT IN THE MID 90'S . PATIENT IS Q2 TURN WITH MAXIMUM ASSIST, PAD CHANGED PRN VIA INCONTINENCE. BARIER CREAM APPLIED IN THE MARIBETH AREA DURING EACH EPISODE OF INCONTINENCE. PATIENT ABLE TO TAKE MEDS WHOLE WHEN MIXED IN PUDDDING. PATIENT RECEIVED ROCEPHINE X1 FOR UTI. PATIENT STILL ON DROPLET PRECAUTION. GRAND DAUGHTER WAS WITH PATIENT ALL DAY AND ASSISTED IN FEEDING AND CLEANING PATIENT. PATIENT WAS VERY PLESANT AND APPROPRIATE ALL THROUGH SHIFT.
[2018-08-15 17:08] VITALS: BP 147/50
[2018-08-15 19:45] VITALS: BP 137/62
--- NOTE | 2018-08-16 04:42 | NUR ---
PT SLEPT MOST OF SHIFT. ASSESSMENT DOCUMENTED. MEDS GIVEN PER E-MAR CRUSHED IN PUDDING. IV PATENT. NO REPORTS OF PAIN THIS SHIFT. PT REPOSITIONED THROUGH NIGHT. WILL CONTINUE WITH PLAN OF CARE.
[2018-08-16 08:00] VITALS: BP 179/71
--- NOTE | 2018-08-16 16:25 | NUR ---
PATIENT PLEASANT THROUGH SHIFT. O2 SAT WAS 87% RA IN THE AM, INCENTIVE SPIROMETER UTILIZIED AND PATIENT REPOSITIONED IN BED, O2 SAT UP TO 94% RA. MEDS GIVEN WHOLE MIXED IN PUDDING, PATIENT TOLERATES WITHOUT DIFFICULTY. TURNED Q2, INCONTINENT OF URINE AND STOOL. POSSIBLE DISCHARGE BACK TO [facility] TOMORROW.
[2018-08-16 19:45] VITALS: BP 154/66
--- NOTE | 2018-08-17 05:35 | NUR ---
PT SLEPT ON AND OFF THIS SHIFT. ASSESSMENT DOCUMENTED. MEDS GIVEN PER E-AUG. NO REPORTS OF PAIN THIS SHIFT. PT INCONTINENT THROUGH NIGHT. PT REPOSITIONED THORUGH SHIFT. WILL CONTINUE WITH PLAN OF CARE.
[2018-08-17 07:56] VITALS: BP 143/54
[2018-08-17] MEDS ORDERED: MUCINEX600 MG PO (11:49)
[2018-08-17] MEDS ORDERED: TAMIFLU75 MG PO (11:50)
--- NOTE | 2018-08-17 11:50 | NUR ---
PT.HAS ORDERS TO DISCHARGE BACK TO [facility],WHERE SHE LIVES. NOTIFIED BEKAH/ADMISSIONS. SHE SAID THEY WILL PUT HER IN AN ISOLATION ROOM UNTIL THEY CAN GET HER BACK TO HER OWN ROOM. SHE WILL ARRANGE [facility]AN TRANSPORTATION FOR 1400. DAUGHTER VISITING. INFORMED OF BUS OR TRUCK GARAGE MECHANIC TIME. FAXED ORDERS TO [facility]. CHART COPIED BY [facility]TO GO WITH PT. NURSING TO CALL REPORT.
[2018-08-17] MEDS ORDERED: CEFUROXIME500 MG PO (11:54)
[2018-08-17 11:55] VITALS: BP 143/54
[2018-08-17 13:42] VITALS: BP 161/60
[2018-08-17 14:03] VITALS: BP 143/54
--- NOTE | 2018-08-17 14:13 | NUR ---
PT DISCHARGE PACKET CREATED. IV REMOVED. PT DRESSED. REPORT CALLED [facility]. PT LEFT VIA WHEELCHAIR WITH NURSING STAFF TO FACILITY. DROPLET PRECAUTIONS MAINTAINED AND DISCONTINUED TODAY. FALL RISK PRECAUTIONS IN PLACE. HOURLY ROUNDING COMPLETED.
== END 2018-08-17 14:16 | DRG 193 ==
LOC: M.ERS 05:04 → M.3W 06:42 → M.TBA-ER 06:42 → M.3W 11:51
PROVIDERS: Internal Medicine; Personal Emergency Response Attendant; ADMIT Family Medicine
DX: J10.00 Influenza due to other identified influenza virus with unspecified type of pneumonia (principal); J96.01 Acute respiratory failure with hypoxia; G93.40 Encephalopathy, unspecified; R65.10 Systemic inflammatory response syndrome (SIRS) of non-infectious origin without acute organ dysfunction; N39.0 Urinary tract infection, site not specified; I10 Essential (primary) hypertension; F03.90 Unspecified dementia, unspecified severity, without behavioral disturbance, psychotic disturbance, mood disturbance, and anxiety; B96.20 Unspecified Escherichia coli [E. coli] as the cause of diseases classified elsewhere; K21.9 Gastro-esophageal reflux disease without esophagitis; I48.91 Unspecified atrial fibrillation; Z90.710 Acquired absence of both cervix and uterus; Z79.82 Long term (current) use of aspirin; Z79.899 Other long term (current) drug therapy; Z88.2 Allergy status to sulfonamides; Z88.8 Allergy status to other drugs, medicaments and biological substances

== ENCOUNTER 2019-04-14 17:14 | Inpatient (IN) | payer OTHER ==
[~2019-04-14] VITALS: Ht 157.5 cm; Wt 61.2 kg
[~2019-04-14 17:14] MED LIST changes: +CEFUROXIME500 MG PO; +TAMIFLU75 MG PO
[2019-04-14 17:26] VITALS: BP 128/66
[2019-04-14 17:44] LABS: BE 0.1 mmol/L (-2 to +3); PCO2 41.2 mmHg (35.0-45.0); PO2 80.2 mmHg (75.0-100.0)
[2019-04-14 17:54] LABS: ABSOLUTE EOSINOPHILS 0.2 thou/uL (0.0-0.7); ABSOLUTE LYMPHOCYTES 2.5 thou/uL (0.8-5.3); ABSOLUTE MONOCYTES 0.5 thou/uL (0.0-1.2); ABSOLUTE NEUTROPHILS 4.6 thou/uL (1.6-8.1); BASOPHILS 0.5 %; EOSINOPHILS 2.2 %; HEMATOCRIT 40.9 % (37.0-47.0); HEMOGLOBIN 13.5 gm/dL (12.0-15.0); MCH 29.4 pg (26.0-34.0); MCHC 33.1 g/dL (28.0-37.0); MCV 88.8 fL (80.0-100.0); MONOCYTES 6.6 %; NUCLEATED RBCS 0 /100WBC; PLATELET COUNT* 207 thou/uL (150-400); POLYS 58.7 %; RBC 4.61 mil/uL (4.20-5.00); RDW-CV 15.6 % (10.5-14.5); WBC 7.8 thou/uL (4.0-11.0)
[2019-04-14 18:03] LABS: CALCIUM 10.6 mg/dL (8.5-10.1); CREATININE 1.5 mg/dL (0.6-1.3)
[2019-04-14 18:08] LABS: ALBUMIN 2.9 g/dL (3.4-5.0); MAGNESIUM 2.2 mg/dL (1.8-2.4); TOTAL BILIRUBIN 0.3 mg/dL (<0.1-1.0); TOTAL PROTEIN 7.9 g/dL (6.4-8.2)
[2019-04-14 18:09] LABS: URINE BILIRUBIN NEGATIVE (Negative); URINE BLOOD NEGATIVE (Negative); URINE CLARITY CLEAR; URINE COLOR YELLOW; URINE GLUCOSE-RANDOM NEGATIVE (Negative); URINE KETONES NEGATIVE (Negative); URINE LEUKOCYTES-REFLEX TRACE (Negative); URINE PROTEIN NEGATIVE (Negative); URINE SPECIFIC GRAVITY 1.025 (1.005-1.030); URINE UROBILINOGEN 0.2 E.U./dl (0.2-1.0)
[2019-04-14 18:12] LABS: URINE NITRITE-REFLEX POSITIVE (Negative)
[2019-04-14 18:19] LABS: SQUAMOUS 0-3 Few /LPF (0-3)
[2019-04-14 18:20] LABS: WBC CLUMPS Moderate (None Seen)
[2019-04-14 18:21] LABS: CASTS None Seen /LPF (None Seen); CRYSTALS None Seen /LPF (None Seen); MUCUS 4-6 Moderate strn/LPF (None Seen); URINE RBC None Seen /HPF (0-2)
[2019-04-14] MEDS ORDERED: TAMIFLU75 MG PO (18:21)
[2019-04-14] MEDS ORDERED: NAMENDA 10 MG T10 MG PO (18:21)
[2019-04-14] MEDS ORDERED: ROBITUSSIN15 MG/5 ML PO (18:22)
[2019-04-14] MEDS ORDERED: ENSURE PLUS237 ML PO (18:22)
[2019-04-14] MEDS ORDERED: ARICEPT10 M1 PO (18:22)
[2019-04-14 18:53] LABS: INFLUENZA A ANTIGEN Negative (Negative); INFLUENZA B ANTIGEN Negative (Negative)
[2019-04-14 19:50] VITALS: BP 137/59
[2019-04-14 21:08] VITALS: BP 151/65
[2019-04-15 07:45] VITALS: BP 161/67
[2019-04-15 09:37] LABS: CALCIUM 9.4 mg/dL (8.5-10.1); MAGNESIUM 1.7 mg/dL (1.8-2.4); POTASSIUM 3.3 mmol/L (3.5-5.1)
--- NOTE | 2019-04-15 11:11 | EKG ---
[place] [address] ELECTROCARDIOGRAM REPORT Name: DOMO PIERCE Room: [address] ADM IN .R.#: [id number] Admission: 04/14/19 Attend Phys: Vern Patel Discharge: Date of : 37 Report #: [id number] THIS REPORT FOR: //name// [facility] ED Test Date: 2019-04-14 Test Time: 17:22:53 Pat Name: DOMO PIERCE Department: Room: [facility] Gender: F Doughnut Icer: KEE : 1935 Requested By: Lala Santiago Order Number: [id number] MD: Jong Marie Measurements Intervals [place] Rate: 74 P: 53 [place]: 159 QRS: -43 QRSD: 96 T: 62 QT: 456 QTc: 506 Interpretive Statements Sinus rhythm Left anterior fascicular block Abnormal R-wave progression, late transition Left ventricular hypertrophy Prolonged QT interval Compared to ECG 08/12/2018 05:42:24 Prolonged QT interval now present Q waves no longer present Electronically Signed On 04-15-2019 11:01:37 CDT by Jong Marie [email or web address] <ELECTRONICALLY SIGNED> By: Jong Marie MD, FACC 04/15/19 1101 [id number] 172 Jong Marie MD, FAC /EPI
[2019-04-15 17:15] VITALS: BP 145/77
[2019-04-15 20:00] VITALS: BP 108/49
[2019-04-16 04:37] LABS: HEMATOCRIT 35.5 % (37.0-47.0); HEMOGLOBIN 11.7 gm/dL (12.0-15.0); MCH 29.2 pg (26.0-34.0); MCV 88.3 fL (80.0-100.0); MPV 9.5 fl. (7.2-11.1); RBC 4.01 mil/uL (4.20-5.00); RDW-CV 15.1 % (10.5-14.5); WBC 5.4 thou/uL (4.0-11.0)
[2019-04-16 04:53] LABS: CALCIUM 9.3 mg/dL (8.5-10.1); MAGNESIUM 1.6 mg/dL (1.8-2.4); POTASSIUM 3.2 mmol/L (3.5-5.1)
[2019-04-16 17:15] VITALS: BP 161/68
[2019-04-16 21:00] VITALS: BP 149/68
[2019-04-17 08:00] VITALS: BP 145/64
[2019-04-17 10:03] LABS: CALCIUM 8.4 mg/dL (8.5-10.1); CREATININE 0.9 mg/dL (0.6-1.3); MAGNESIUM 1.4 mg/dL (1.8-2.4)
[2019-04-17 10:07] LABS: POTASSIUM 2.7 mmol/L (3.5-5.1)
[2019-04-17 16:00] VITALS: BP 152/64
[2019-04-17 20:00] VITALS: BP 111/66
[2019-04-18 04:38] LABS: HEMATOCRIT 32.3 % (37.0-47.0); HEMOGLOBIN 11.2 gm/dL (12.0-15.0); MCH 29.7 pg (26.0-34.0); MCHC 34.6 g/dL (28.0-37.0); MCV 85.9 fL (80.0-100.0); MPV 9.5 fl. (7.2-11.1); RBC 3.76 mil/uL (4.20-5.00); RDW-CV 14.6 % (10.5-14.5); WBC 5.2 thou/uL (4.0-11.0)
[2019-04-18 04:40] LABS: CREATININE 0.8 mg/dL (0.6-1.3); MAGNESIUM 1.6 mg/dL (1.8-2.4)
[2019-04-18 08:00] VITALS: BP 115/69
[2019-04-18 16:27] VITALS: BP 128/60
[2019-04-19 06:12] VITALS: BP 143/63
[2019-04-19 08:00] VITALS: BP 141/65
[2019-04-19] MEDS ORDERED: PREMARIN30 GM TOP (09:09)
[2019-04-19 12:22] VITALS: BP 141/65
== END 2019-04-19 16:03 | DRG 91 ==
LOC: M.ERS 17:14 → M.3W 18:13 → M.TBA-ER 18:13 → M.3W 20:00
PROVIDERS: Internal Medicine; Personal Emergency Response Attendant; ADMIT Internal Medicine
DX: G92 Toxic encephalopathy (principal); N17.0 Acute kidney failure with tubular necrosis; E43 Unspecified severe protein-calorie malnutrition; J18.1 Lobar pneumonia, unspecified organism; E87.0 Hyperosmolality and hypernatremia; I69.354 Hemiplegia and hemiparesis following cerebral infarction affecting left non-dominant side; J98.11 Atelectasis; D68.59 Other primary thrombophilia; D68.32 Hemorrhagic disorder due to extrinsic circulating anticoagulants; N95.2 Postmenopausal atrophic vaginitis; N18.2 Chronic kidney disease, stage 2 (mild); T45.515A Adverse effect of anticoagulants, initial encounter; R13.10 Dysphagia, unspecified; I12.9 Hypertensive chronic kidney disease with stage 1 through stage 4 chronic kidney disease, or unspecified chronic kidney disease; N30.91 Cystitis, unspecified with hematuria; E86.0 Dehydration; Z66 Do not resuscitate; B96.20 Unspecified Escherichia coli [E. coli] as the cause of diseases classified elsewhere; I48.91 Unspecified atrial fibrillation; F03.90 Unspecified dementia, unspecified severity, without behavioral disturbance, psychotic disturbance, mood disturbance, and anxiety; K21.9 Gastro-esophageal reflux disease without esophagitis; Z90.710 Acquired absence of both cervix and uterus; Z79.82 Long term (current) use of aspirin; Z88.2 Allergy status to sulfonamides; Z88.8 Allergy status to other drugs, medicaments and biological substances; Y92.89 Other specified places as the place of occurrence of the external cause